=== PATIENT | male | born 1990 | race Caucasian/White ===

== ENCOUNTER 2021-07-03 21:00 | Emergency (ER) | payer OTHER ==
[~2021-07-03] VITALS: Ht 180.3 cm; Wt 79.4 kg
[~2021-07-03 21:00] MED LIST: ORPH100T PO
[2021-07-03] MEDS ORDERED: ATIVAN1 M1 PO (21:07)
[2021-07-03] MEDS ORDERED: SEROQUEL50 MG PO (22:33)
[2021-07-03] MEDS ORDERED: WELLBUTRIN XL300 MG PO (22:33)
[2021-07-04] MEDS ORDERED: KETO10TA2 PO (00:32)
== END 2021-07-04 00:40 | disposition home or self-care (01) ==
LOC: ER 21:00
DX: N43.3 Hydrocele, unspecified (principal); N50.811 Right testicular pain